=== PATIENT | male | born 1995 | race Caucasian/White ===

== ENCOUNTER 2019-07-05 12:42 | Emergency (ER) | payer MEDICAID ==
[~2019-07-05] VITALS: Ht 188 cm; Wt 84.0 kg
[~2019-07-05 12:42] MED LIST: CYCL-1 PO
[2019-07-05 13:34] LABS: CLARITY,URINE SLIGHTLY CLOUDY (Clear); COLOR,URINE YELLOW (Yellow); GLUCOSE, URINE NEGATIVE (Neg); KETONES,URINE NEGATIVE (Neg); LEUKOCYTE ESTERASE ,URINE TRACE (Neg); NITRITES, URINE NEGATIVE (Neg); OCCULT BLOOD,URINE NEGATIVE (Neg); PH,URINE 6.5 (4.8-8.0); PROTEIN,URINE NEGATIVE (Neg); UROBILINOGEN,URINE 0.2 E.U/dL (0.2-1.0)
[2019-07-05 13:35] LABS: BASOPHILS # (AUTO) 0.1 X10'3 (0-0.2); BASOPHILS % (AUTO) 1.1 % (0-1); EOSINOPHILS # (AUTO) 0.3 X10'3 (0-0.9); EOSINOPHILS % (AUTO) 5.4 % (0-6); HEMATOCRIT 46.6 % (42.0-52.0); HEMOGLOBIN 15.9 g/dl (14.0-17.9); LYMPHOCYTES # (AUTO) 1.8 X10'3 (1.1-4.8); LYMPHOCYTES % (AUTO) 36.4 % (21-51); MEAN CORPUSCULAR HEMOGLOBIN 31.7 PG (27.0-31.0); MEAN CORPUSCULAR HGB CONC 34.2 g/dL (33.0-36.5); MEAN CORPUSCULAR VOLUME 92.7 FL (78-98); MEAN PLATELET VOLUME 9.8 FL (7.4-10.4); MONOCYTES # (AUTO) 0.6 X10'3 (0-0.9); MONOCYTES % (AUTO) 11.6 % (2-12); NEUTROPHILS # (AUTO) 2.2 X10'3 (1.8-7.7); NEUTROPHILS % (AUTO) 45.5 % (42-75); PLATELET COUNT 172 X10'3 (140-440); RED BLOOD COUNT 5.03 X10'6 (4.70-6.10); RED CELL DISTRIBUTION WIDTH 12.9 % (11.5-14.5); WHITE BLOOD COUNT 4.8 X10'3 (4.5-11.0)
[2019-07-05 13:35] LABS: UA COLLECTION TYPE CLN CATCH MIDSTREAM
[2019-07-05 13:41] LABS: MUCUS STRANDS FEW /LPF (Neg); SQUAMOUS EPITHELIAL CELL,UR MANY /LPF (FEW)
[2019-07-05 13:42] LABS: BACTERIA,URINE FEW /HPF (Neg); WBC,URINE 0-4 /HPF (0-4)
[2019-07-05 13:43] LABS: RBC,URINE 0-2 /HPF (0-2); RENAL CELLS, URINE FEW /HPF; TRANSITIONAL EPI CELLS,URINE FEW /HPF
[2019-07-05 13:49] LABS: ALANINE AMINOTRANSFERASE 27 U/L (12-78); ALBUMIN 3.9 G/DL (3.4-5.0); ALBUMIN/GLOBULIN RATIO 1.2 (1.1-1.5); ALKALINE PHOSPHATASE 60 IU/L (46-116); ANION GAP 7 (8-16); ASPARTATE AMINO TRANSFERASE 17 U/L (10-37); BILIRUBIN,TOTAL 0.9 MG/DL (0.1-1.0); BLOOD UREA NITROGEN 11 MG/DL (7-18); BUN/CREATININE RATIO 12.6 (5.4-32.0); CALCIUM 8.8 MG/DL (8.5-10.1); CHLORIDE 104 MMOL/L (99-107); CREATININE 0.87 MG/DL (0.60-1.10); GLUCOSE 91 MG/DL (70-104); SODIUM 140 MMOL/L (135-145); TOTAL CARBON DIOXIDE 29.3 MMOL/L (24-32); TOTAL PROTEIN 7.1 G/DL (6.4-8.2); eGFR > 90 ML/MIN
--- NOTE | 2019-07-05 15:09 | NUR ---
Provider is at the bedside with the patient and family member at this time.
--- NOTE | 2019-07-05 15:35 | NUR ---
Phoned lab and verified they have a specimen to complete the tox screen.
[2019-07-05 15:52] LABS: URINE AMPHETAMINE SCREEN NEGATIVE (Neg); URINE BARBITUATE SCREEN NEGATIVE (Neg); URINE BENZODIAZEPINES SCREEN NEGATIVE (Neg); URINE CANNABINOID SCREEN POSITIVE (Neg); URINE COCAINE SCREEN POSITIVE (Neg); URINE METHADONE SCREEN NEGATIVE (Neg); URINE OPIATE SCREEN NEGATIVE (Neg); URINE PHENCYCLIDINE SCREEN NEGATIVE (Neg)
--- NOTE | 2019-07-05 15:56 | NUR ---
Pt is in CT scan at this time.
--- NOTE | 2019-07-05 16:38 | NUR ---
Pt given a PO challenge with one liter of ice water to drink prior to discharge.
[2019-07-05 17:00] VITALS: BP 133/87
== END 2019-07-05 17:05 | disposition home or self-care (01) ==
LOC: ER 12:42
DX: R55 Syncope and collapse (principal); R51 Headache; R07.89 Other chest pain; R53.1 Weakness; F12.90 Cannabis use, unspecified, uncomplicated; Z79.899 Other long term (current) drug therapy
CPT/HCPCS: 36415; 70450; 71045; 80053; 80305; 81001; 84484; 85025; 93005; 99284

== ENCOUNTER 2019-09-05 20:48 | Emergency (ER) | payer MEDICAID ==
[~2019-09-05] VITALS: Ht 188 cm; Wt 79.5 kg
[2019-09-05 21:26] LABS: BASOPHILS # (AUTO) 0.1 X10'3 (0-0.2); EOSINOPHILS # (AUTO) 0.1 X10'3 (0-0.9); HEMOGLOBIN 17.8 g/dl (14.0-17.9); WHITE BLOOD COUNT 10.3 X10'3 (4.5-11.0)
[2019-09-05 21:27] LABS: BASOPHILS % (AUTO) 1.2 % (0-1); EOSINOPHILS % (AUTO) 0.7 % (0-6); HEMATOCRIT 50.7 % (42.0-52.0); LYMPHOCYTES # (AUTO) 3.3 X10'3 (1.1-4.8); LYMPHOCYTES % (AUTO) 32.2 % (21-51); MEAN CORPUSCULAR HEMOGLOBIN 31.5 PG (27.0-31.0); MEAN PLATELET VOLUME 9.9 FL (7.4-10.4); MONOCYTES # (AUTO) 0.9 X10'3 (0-0.9); MONOCYTES % (AUTO) 9.1 % (2-12); NEUTROPHILS # (AUTO) 5.9 X10'3 (1.8-7.7); NEUTROPHILS % (AUTO) 56.8 % (42-75); PLATELET COUNT 210 X10'3 (140-440); RED BLOOD COUNT 5.63 X10'6 (4.70-6.10); RED CELL DISTRIBUTION WIDTH 13.1 % (11.5-14.5)
[2019-09-05 21:40] LABS: ALANINE AMINOTRANSFERASE 22 U/L (12-78); ALBUMIN 4.8 G/DL (3.4-5.0); ALBUMIN/GLOBULIN RATIO 1.5 (1.1-1.5); ALKALINE PHOSPHATASE 74 IU/L (46-116); ANION GAP 9 (8-16); ASPARTATE AMINO TRANSFERASE 13 U/L (10-37); BILIRUBIN,TOTAL 0.3 MG/DL (0.1-1.0); BLOOD UREA NITROGEN 7 MG/DL (7-18); BUN/CREATININE RATIO 9.3 (5.4-32.0); CALCIUM 9.1 MG/DL (8.5-10.1); CHLORIDE 107 MMOL/L (99-107); CREATININE 0.75 MG/DL (0.60-1.10); GLUCOSE 103 MG/DL (70-104); POTASSIUM 3.5 MMOL/L (3.5-5.1); SODIUM 145 MMOL/L (135-145); TOTAL CARBON DIOXIDE 28.8 MMOL/L (24-32); eGFR > 90 ML/MIN
[2019-09-05] MEDS ORDERED: TETanus/Pertussis (Acell)/Diphther VAC/PF (Tdap-Adult) 0.5ml syringe IMVAC ONE (21:55)
[2019-09-05] MEDS ORDERED: LIDOcaine 1% W/epiNEPHrine 1:200,000 10ml vial IJ ONE (21:55)
--- NOTE | 2019-09-05 23:09 | NUR ---
Sapna Marino is the patients mother. The patient agrees that he wants his mother updated when he is either released or placed somewhere. [phone]
--- NOTE | 2019-09-06 00:05 | NUR ---
PT RESTING QUIETLY IN BED. HE HAS COVERED HIMSELF WITH A BLANKET AND PLACED THE PILLOW ON TOP OF HIS HEAD. NO SIGNS OF DISTRESS NOTED.
--- NOTE | 2019-09-06 01:00 | NUR ---
PT SLEEPING, NO SIGNS OF DISTRESS NOTED
[2019-09-06] MEDS ORDERED: OMEP40CA13 PO (01:28)
--- NOTE | 2019-09-06 02:15 | NUR ---
PT CONT TO REST QUIETLY IN BED. WILL CONT TO MONITOR
--- NOTE | 2019-09-06 03:07 | NUR ---
PT CONT TO REST QUIETLY, NO SIGNS OF DISTRESS NOTED
--- NOTE | 2019-09-06 04:25 | NUR ---
PT AWAKE, STANDING AT DOOR AGITATED ABOUT HOW COLD IT IS HERE AND HOW HE NEEDS MORE BLANKETS. WARM BLANKETS PROVIDED AND PT BACK TO BED. WILL CONT TO MONITOR
--- NOTE | 2019-09-06 05:00 | NUR ---
pt resting quietly, no signs of distress noted
--- NOTE | 2019-09-06 06:25 | NUR ---
PT RESTING ON HIS RIGHT SIDE, NO S/S OF RESPIRATORY DISTRESS
--- NOTE | 2019-09-06 06:40 | NUR ---
PT ESCORTED BY PRIMARY RN TO THE RESTROOM TO GET A URINE SAMPLE
[2019-09-06] MEDS ORDERED: pantoprazole 40mg Tablet.DR PO SCH (07:30)
--- NOTE | 2019-09-06 08:16 | NUR ---
called pt's mother to ascertain if she was coming in this morning to see her son she said she would be coming in after getting a few of her chores done this morning.
--- NOTE | 2019-09-06 09:30 | NUR ---
Uncle Rory in speaking with patient.
--- NOTE | 2019-09-06 10:28 | NUR ---
Girlfriend in room talking with patient. She is tearful and he is calm and attentive.
--- NOTE | 2019-09-06 10:45 | NUR ---
Parents and girlfriend at bedside. MD will re evaluate pt for discharge.
[2019-09-06 11:00] VITALS: BP 136/81
--- NOTE | 2019-09-06 11:13 | NUR ---
Pt acknowledges all items returned to him on belongings list. No questions or discrepancies.
--- NOTE | 2019-09-06 11:14 | NUR ---
Pt given supplies to care for wound at home.
== END 2019-09-06 11:21 ==
LOC: ER 20:49
DX: S51.812A Laceration without foreign body of left forearm, initial encounter (principal); F79 Unspecified intellectual disabilities; F10.129 Alcohol abuse with intoxication, unspecified; R79.1 Abnormal coagulation profile; F12.90 Cannabis use, unspecified, uncomplicated; F15.90 Other stimulant use, unspecified, uncomplicated; F14.90 Cocaine use, unspecified, uncomplicated; Z79.899 Other long term (current) drug therapy; X78.8XXA Intentional self-harm by other sharp object, initial encounter; Y93.89 Activity, other specified; Y92.89 Other specified places as the place of occurrence of the external cause; Y99.8 Other external cause status; Y90.0 Blood alcohol level of less than 20 mg/100 ml
CPT/HCPCS: 12006; 36415; 80053; 80320; 84443; 85025; 90471; 90715; 99284

== ENCOUNTER 2019-09-20 16:58 | Emergency (ER) | payer MEDICAID ==
[~2019-09-20] VITALS: Ht 188 cm; Wt 82.0 kg
[~2019-09-20 16:58] MED LIST changes: +OMEP40CA13 PO
[2019-09-20 17:07] VITALS: BP 141/84
== END 2019-09-20 18:03 | disposition home or self-care (01) ==
LOC: ER 17:00
DX: S51.812D Laceration without foreign body of left forearm, subsequent encounter (principal); F12.90 Cannabis use, unspecified, uncomplicated; F15.90 Other stimulant use, unspecified, uncomplicated; F14.90 Cocaine use, unspecified, uncomplicated; Z79.899 Other long term (current) drug therapy; X78.8XXD Intentional self-harm by other sharp object, subsequent encounter
CPT/HCPCS: 99281

== ENCOUNTER 2020-03-27 09:05 | Outpatient (CLI) | payer MEDICAID ==
[~2020-03-27 09:05] MED LIST changes: +ONDA4TAB6 PO; +PANT-47 PO
== END 2020-03-27 23:59 | disposition home or self-care (01) ==
LOC: RAD 09:05
DX: G40.909 Epilepsy, unspecified, not intractable, without status epilepticus (principal)
CPT/HCPCS: 95819